=== PATIENT | female | born 1960 | race Caucasian/White ===

== ENCOUNTER → 2023-08-29 | Emergency (ER) | payer BC ==
[~2023-08-29] MED LIST: ASPIRIN 81 MG CHEWABLE TABLET ONE; FAMOTIDINE 20 MG TAB ONE; MAGNES/ALUMIN/SIMET 30ML UCUP ONE
[2023-08-29 03:00] LABS: Protime INR 0.96
[2023-08-29 03:03] LABS: Absolute Lymphocytes (CBC) 2.4 K/uL (0.7-4.9); Lymphocytes % 51.3 % (15.3-44.8); MCV 87.6 fL (80-100); MPV 7.6 fL (7.6-11.3); Platelets 273 thou/uL (152-406)
[2023-08-29 03:18] LABS: Albumin 3.5 g/dL (3.4-5.0); Bilirubin Direct 0.1 mg/dL (0-0.2); Bilirubin Indirect, Calculated 0.3 mg/dL (0.2-0.8); Bilirubin Total 0.4 mg/dL (0.2-1.0); Magnesium 2.2 mg/dL (1.6-2.4); Potassium 4.1 mEq/L (3.5-5.1); Troponin High Sensitivity 4.8 pg/mL (<58.9)
[2023-08-29 03:26] LABS: C-Reactive Protein < 2.90 mg/L (<3.00)
[2023-08-29 03:40] LABS: Blood Morphology Comment NOT SEEN (NOT SEEN); Platelet Estimate ADEQ
--- NOTE | 2023-08-29 05:44 | EDPHYS ---
Physician Documentation [facility] Name: Laverne Wolfe Age: 62 yrs Sex: Female : 1960 Arrival Date: 08/29/2023 Time: 01:11 Bed 17 Private MD: ED Physician Juan Peralta HPI: 08/29 01:30 This 62 yrs old Female presents to ER via Unassigned with complaints of Chest sp4 Pain. 01:55 Patient presents with complaint of chest pressure and indigestion worsening today but sp4 present for the past several days. Patient denied exertional chest pain, denied shortness of breath denied sweating. Patient has history of hypertension she takes losartan 50 mg tablet daily. Patient also takes Valtrex daily for fever blister suppression. No history of present coronary artery disease. . Historical: - Allergies: 02:33 No Known Allergies; km8 - Home Meds: 02:33 losartan oral [Active]; Valtrex Oral [Active]; melatonin 10 mg Oral tablet [Active]; km8 - PMHx: 02:33 Hypertensive disorder; km8 - PSHx: 02:33 Total abdominal hysterectomy; km8 - Immunization history:: Client reports receiving the 1st dose of the Covid vaccine, Flu vaccine is up to date. - Social history:: Smoking status: Patient denies any tobacco usage or history of. Patient uses alcohol, occasionally. Patient/guardian denies using street drugs. - Family history:: not pertinent. ROS: 01:55 Constitutional: Negative for fever, chills, and weight loss, positive chest pressure sp4 and indigestion 01:55 All other systems are negative, Exam: 01:55 Constitutional: This is a well developed, well nourished patient who is awake, alert, sp4 and in no acute distress. Head/Face: Normocephalic, atraumatic. Eyes: Pupils equal round and reactive to light, extra-ocular motions intact. Lids and lashes normal. Conjunctiva and sclera are not injected. Cornea within normal limits. Periorbital areas with no swelling, redness, or edema. ENT: Nares patent. No nasal discharge, no septal abnormalities noted. Tympanic membranes are normal and external auditory canals are clear. Oropharynx with no redness, swelling, or masses, exudates, or evidence of obstruction, uvula midline. Mucous membranes moist. Neck: Trachea midline, no thyromegaly or masses palpated, and no cervical lymphadenopathy. Supple, full range of motion without nuchal rigidity, or vertebral point tenderness. Chest/axilla: Normal chest wall appearance and motion. Nontender with no deformity. No lesions are appreciated. Cardiovascular: Regular rate and rhythm with a normal S1 and S2. No gallops, murmurs, or rubs. Normal PMI, no JVD. No pulse deficits. Respiratory: Lungs have equal breath sounds bilaterally, clear to auscultation and percussion. No rales, rhonchi or wheezes noted. No increased work of breathing, no retractions or nasal flaring. Abdomen/GI: Soft, non-tender, with normal bowel sounds. No distension or tympany. No guarding or rebound. No evidence of tenderness throughout. Back: No spinal tenderness. No costovertebral tenderness. Skin: Warm, dry with normal turgor. Normal color with no rashes, no lesions, and no evidence of cellulitis. MS/ Extremity: Pulses equal, no cyanosis. Neurovascular intact. Full, normal range of motion. Neuro: Awake and alert, GCS 15, oriented to person, place, time, and situation. Cranial nerves II-XII grossly intact. Motor strength 5/5 in all extremities. Sensory grossly intact. Psych: Awake, alert, with orientation to person, place and time. Behavior, mood, and affect are within normal limits 02:03 ECG was reviewed by the Attending Physician. sp4 Vital Signs: 01:15 BP 154 / 78; Pulse 76; Resp 16; Temp 98(TE); Pulse Ox 100% on R/A; Pain 0/10; km8 02:00 BP 130 / 79; Pulse 65; Resp 16; Pulse Ox 100% on R/A; km8 02:30 BP 112 / 70; Pulse 64; Resp 16; Pulse Ox 100% ; km8 03:00 BP 112 / 74; Pulse 64; Resp 16; Pulse Ox 99% on R/A; km8 04:00 BP 119 / 68; Pulse 61; Resp 16; Pulse Ox 99% on R/A; km8 05:00 BP 125 / 70; Pulse 65; Resp 16; Pulse Ox 100% on R/A; km8 05:30 BP 127 / 71; Pulse 62; Resp 16; Pulse Ox 100% on R/A; km8 01:15 Pain Scale: Adult km8 Zack Coma Score: 01:15 Eye Response: spontaneous(4). Motor Response: obeys commands(6). Verbal Response: km8 oriented(5). Total: 15. MDM: 01:30 Patient medically screened. sp4 01:55 HEART Score: History: Slightly Suspicious (0), ECG: Normal (0), Age: > 45 and < 65 sp4 years (1), Risk Factors: 1 or 2 risk factors (1), Troponin: < or = 1 x Normal Limit (0), Total Score = 2. 02:49 Differential diagnosis: acute pericarditis, anxiety, coronary artery disease chest wall sp4 pain, congestive heart failure cholecystitis, Cholelithiasis. The patient was given aspirin in the Emergency Department. Data reviewed: vital signs, nurses notes, old medical records, lab test result(s), EKG, radiologic studies, plain films. ED course: EXAM: XR Chest, 1 View CLINICAL HISTORY: The patient is 62 years old and is Female; CHEST PAIN TECHNIQUE: Frontal view of the chest. COMPARISON: No relevant prior studies available. FINDINGS: LUNGS: Unremarkable. No consolidation. PLEURAL SPACE: Unremarkable. No pneumothorax. HEART: Unremarkable. No cardiomegaly. MEDIASTINUM: Unremarkable. Normal mediastinal contour. BONES/JOINTS: Multilevel degenerative change of the spine is present. No acute fracture. UPPER ABDOMEN: Suggestion of calcified gallstones within the right upper quadrant are noted. IMPRESSION: No acute cardiopulmonary process. . 08/29 01:30 Order name: Basic Metabolic Panel; Complete Time: 04:47 08/29 01:30 Order name: CBC with Diff; Complete Time: 04:47 08/29 01:30 Order name: LFT's; Complete Time: 04:47 08/29 01:30 Order name: Magnesium; Complete Time: 04:47 08/29 01:30 Order name: NT PRO-BNP; Complete Time: 04:47 08/29 01:30 Order name: PT-INR; Complete Time: 04:47 4 08/29 01:30 Order name: Troponin HS; Complete Time: 04:47 08/29 01:41 Order name: TSH; Complete Time: 04:47 08/29 01:41 Order name: CRP; Complete Time: 04:47 sp4 08/29 01:41 Order name: T4 Free; Complete Time: 04:47 sp4 08/29 03:09 Order name: Manual Differential; Complete Time: 04:47 EDMS 08/29 04:47 Order name: Troponin High Sensitivity; Complete Time: 05:38 sp4 08/29 01:30 Order name: XRAY Chest (1 view) sp4 08/29 01:30 Order name: EKG; Complete Time: 01:31 sp4 08/29 01:30 Order name: Cardiac monitoring; Complete Time: 02:00 sp4 08/29 01:30 Order name: EKG - Nurse/Tech; Complete Time: 02:00 sp4 08/29 01:30 Order name: IV Saline Lock; Complete Time: 02:00 sp4 08/29 01:30 Order name: Labs collected and sent; Complete Time: 02:00 sp4 08/29 01:30 Order name: O2 Per Protocol; Complete Time: 02:00 sp4 08/29 01:30 Order name: O2 Sat Monitoring; Complete Time: 02:00 sp4 EC:03 Rate is 67 beats/min. Rhythm is regular, Normal Sinus Rhythm. QRS [place] is Normal. NE sp4 interval is normal. QRS interval is normal. QT interval is normal. No Q waves. T waves are Normal. No ST changes noted. Interpreted by me. Reviewed by me. Administered Medications: 01:59 Drug: Alum-Mag Hydroxide-Simeth PO Suspension (200 mg-200 mg-20 mg/5 mL) 30 ml PO once km8 Route: PO; 03:11 Follow up: Response: No adverse reaction km8 01:59 Drug: Famotidine PO 20 mg PO once Route: PO; km8 03:11 Follow up: Response: No adverse reaction km8 02:00 Drug: Aspirin PO Chewable Tablet 324 mg PO once; 81 mg tablets x 4 Route: PO; km8 03:11 Follow up: Response: No adverse reaction km8 Disposition Summary: 08/29/23 05:43 Discharge Ordered Problem: new sp4 Symptoms: have improved sp4 Condition: Stable sp4 Diagnosis - Chest pain, unspecified sp4 - Acute non-cardiac chest pain sp4 Followup: sp4 - With: Mayo Gonzalez MD - When: 7 - 10 days - Reason: Recheck today's complaints Discharge Instructions: - Discharge Summary Sheet sp4 - Nonspecific Chest Pain, Adult, [id number] sp4 Forms: - Patient Portal Instructions sp4 Signatures: Dispatcher [employer] Juan Aguilera MD MD sp4 Clara Guadalupe RN RN km8
--- NOTE | 2023-08-29 05:44 | ER ---
Nurse's Notes [facility] Name: Laverne Wolfe Age: 62 yrs Sex: Female : 1960 Arrival Date: 08/29/2023 Time: 01:11 Bed 17 Private MD: Diagnosis: Chest pain, unspecified;Acute non-cardiac chest pain Presentation: 08/29 01:15 Chief complaint: Patient states: middle chest pressure that woke her up today about 1.5 km8 hours ago; pt reports having heart burn for a few weeks, but this feels different. Coronavirus screen: Client denies travel out of the [place] in the last 14 days. Ebola Screen: No symptoms or risks identified at this time. Initial Sepsis Screen: Does the patient meet any 2 criteria? No. Patient's initial sepsis screen is negative. Does the patient have a suspected source of infection? No. Patient's initial sepsis screen is negative. Risk Assessment: Do you want to hurt yourself or someone else? Patient reports no desire to harm self or others. Onset of symptoms was August 29, 2023 at 00:15. 01:15 Method Of Arrival: Ambulatory km8 01:15 Acuity: IAIN 2 km8 Triage Assessment: 01:15 General: Appears in no apparent distress. comfortable, Behavior is calm, cooperative, km8 appropriate for age. Pain: Denies pain. EENT: No signs and/or symptoms were reported regarding the EENT system. Neuro: Level of Consciousness is awake, alert, obeys commands, Oriented to person, place, time, situation. Cardiovascular: Reports chest pain, Denies diaphoresis, nausea, shortness of breath, Capillary refill < 3 seconds Patient's skin is warm and dry. Rhythm is sinus rhythm Chest pain is described as mild, quality is pressure, is located in anterior chest wall began 1 hour prior to arrival. Respiratory: Airway is patent Respiratory effort is even, unlabored, Respiratory pattern is regular, symmetrical. GI: No signs and/or symptoms were reported involving the gastrointestinal system. : No signs and/or symptoms were reported regarding the genitourinary system. Derm: No signs and/or symptoms reported regarding the dermatologic system. Skin is intact, is healthy with good turgor, Skin is dry, Skin is pink, warm \T\ dry. normal, Skin temperature is warm. Musculoskeletal: No signs and/or symptoms reported regarding the musculoskeletal system. Circulation, motion, and sensation intact. Range of motion: intact in all extremities. Historical: - Allergies: 02:33 No Known Allergies; 8 - Home Meds: 02:33 losartan oral [Active]; Valtrex Oral [Active]; melatonin 10 mg Oral tablet [Active]; 8 - PMHx: 02:33 Hypertensive disorder; 8 - PSHx: 02:33 Total abdominal hysterectomy; km8 - Immunization history:: Client reports receiving the 1st dose of the Covid vaccine, Flu vaccine is up to date. - Social history:: Smoking status: Patient denies any tobacco usage or history of. Patient uses alcohol, occasionally. Patient/guardian denies using street drugs. - Family history:: not pertinent. Screenin:15 [facility] ED Fall Risk Assessment (Adult) History of falling in the last 3 months, 8 including since admission No falls in past 3 months (0 pts) Confusion or Disorientation No (0 pts) Intoxicated or Sedated No (0 pts) Impaired Gait No (0 pts) Mobility Assist Device Used No (0 pt) Altered Elimination No (0 pt) Score/Fall Risk Level 0 - 2 = Low Risk Oriented to surroundings, Maintained a safe environment, Educated pt \T\ family on fall prevention, incl call for assistance when getting out of bed, Assessed \T\ reinforced patient's understanding of fall precautions. Abuse screen: Denies threats or abuse. Denies injuries from another. Nutritional screening: No deficits noted. Tuberculosis screening: No symptoms or risk factors identified. Assessment: 01:15 General: see triage assessment/notes. [facility] 02:15 Reassessment: Patient appears in no apparent distress at this time. No changes from [facility] previously documented assessment. Patient and/or family updated on plan of care and expected duration. Pain level reassessed. Patient is alert, oriented x 3, equal unlabored respirations, skin warm/dry/pink. 03:11 Reassessment: Patient appears in no apparent distress at this time. No changes from [facility] previously documented assessment. Patient and/or family updated on plan of care and expected duration. Pain level reassessed. Patient is alert, oriented x 3, equal unlabored respirations, skin warm/dry/pink. 04:15 Reassessment: Patient appears in no apparent distress at this time. No changes from km8 previously documented assessment. Patient and/or family updated on plan of care and expected duration. Pain level reassessed. Patient is alert, oriented x 3, equal unlabored respirations, skin warm/dry/pink. 05:16 Reassessment: Patient appears in no apparent distress at this time. No changes from km8 previously documented assessment. Patient and/or family updated on plan of care and expected duration. Pain level reassessed. Patient is alert, oriented x 3, equal unlabored respirations, skin warm/dry/pink. Vital Signs: 01:15 BP 154 / 78; Pulse 76; Resp 16; Temp 98(TE); Pulse Ox 100% on R/A; Pain 0/10; km8 02:00 BP 130 / 79; Pulse 65; Resp 16; Pulse Ox 100% on R/A; km8 02:30 BP 112 / 70; Pulse 64; Resp 16; Pulse Ox 100% ; km8 03:00 BP 112 / 74; Pulse 64; Resp 16; Pulse Ox 99% on R/A; km8 04:00 BP 119 / 68; Pulse 61; Resp 16; Pulse Ox 99% on R/A; km8 05:00 BP 125 / 70; Pulse 65; Resp 16; Pulse Ox 100% on R/A; km8 05:30 BP 127 / 71; Pulse 62; Resp 16; Pulse Ox 100% on R/A; km8 01:15 Pain Scale: Adult km8 Zack Coma Score: 01:15 Eye Response: spontaneous(4). Motor Response: obeys commands(6). Verbal Response: km8 oriented(5). Total: 15. ED Course: 01:12 Patient arrived in ED. [email or web address] 01:15 No provider procedures requiring assistance completed. Patient maintains SpO2 km8 saturation greater than 95% on room air. 01:15 Arm band placed on right wrist. km8 01:15 Patient has correct armband on for positive identification. Placed in gown. Bed in low km8 position. Call light in reach. Side rails up X2. Client placed on continuous cardiac and pulse oximetry monitoring. NIBP monitoring applied. Warm blanket given. 01:30 Juan Peralta MD is Attending Physician. sp4 01:50 XRAY Chest (1 view) In Process Unspecified. EDMS 01:53 Collins, Clara, RN is Primary Nurse. km8 02:00 Inserted saline lock: 20 gauge in left antecubital area, using aseptic technique. Blood km8 collected. 02:33 Triage completed. km8 05:42 Mayo Gonzalez MD is Referral Physician. sp4 05:50 IV discontinued, intact, bleeding controlled, No redness/swelling at site. Pressure km8 dressing applied. 05:50 Provided Education on: d/c teaching. km8 Administered Medications: 01:59 Drug: Alum-Mag Hydroxide-Simeth PO Suspension (200 mg-200 mg-20 mg/5 mL) 30 ml PO once km8 Route: PO; 03:11 Follow up: Response: No adverse reaction km8 01:59 Drug: Famotidine PO 20 mg PO once Route: PO; km8 03:11 Follow up: Response: No adverse reaction km8 02:00 Drug: Aspirin PO Chewable Tablet 324 mg PO once; 81 mg tablets x 4 Route: PO; km8 03:11 Follow up: Response: No adverse reaction km8 Medication: 01:15 VIS not applicable for this client. km8 Outcome: 05:43 Discharge ordered by . sp4 05:51 Discharged to home ambulatory, with significant other, km8 05:51 Condition: good 05:51 Discharge instructions given to patient, significant other, Instructed on discharge instructions, follow up and referral plans. Demonstrated understanding of instructions, follow-up care, 05:51 Patient left the ED. km8 Signatures: Dispatcher [employer] EDMD Radha Lawrence [email or web address] Juan Peralta MD MD sp4 Clara Guadalupe, RN RN km8 Corrections: (The following items were deleted from the chart) 03:11 02:36 General: see triage assessment/notes. km8 km8
--- NOTE | 2023-08-29 12:54 | EKG ---
Test Date: 2023-08-29 Test Time: 01:42:32 Online Content Developer: JOSE MEASUREMENT RESULTS: Intervals: Rate: 67 IN: 178 QRSD: 94 QT: 414 QTc: 437 [place]: P: 48 IN: 178 QRS: 47 T: 51 INTERPRETIVE STATEMENTS: Normal sinus rhythm Normal ECG Compared to ECG 04/27/2009 11:11:04 No significant changes Electronically Signed On 08-29-23 12:52:25 PAEDIATRIC PHYSIOTHERAPIST by Mayo Gonzalez
--- NOTE | 2023-08-29 15:06 | RAD REPORT ---
EXAM DESCRIPTION: RAD - Chest Single View - 08/29/2023 1:49 am CLINICAL HISTORY: The patient is 62 years old and is Female; CHEST PAIN TECHNIQUE: Frontal view of the chest. COMPARISON: No relevant prior studies available. FINDINGS: LUNGS: Unremarkable. No consolidation. PLEURAL SPACE: Unremarkable. No pneumothorax. HEART: Unremarkable. No cardiomegaly. MEDIASTINUM: Unremarkable. Normal mediastinal contour. BONES/JOINTS: Multilevel degenerative change of the spine is present. No acute fracture. UPPER ABDOMEN: Suggestion of calcified gallstones within the right upper quadrant are noted. IMPRESSION: No acute cardiopulmonary process. Electronically signed by: Tiffanie Gregorio MD 08/29/2023 02:18 AM [facility] Due to temporary technical issues with the PACS/Fluency reporting system, reports are being signed by the in house radiologists without review as a courtesy to insure prompt reporting. The interpreting radiologist is fully responsible for the content of the report.
[2023-08-30 09:19] VITALS: BP 127/71; TEMP 98; O2SAT 100
== END ==
LOC: ER 01:11
DX: R07.89 Other chest pain (principal); I10 Essential (primary) hypertension
CPT/HCPCS: 36415; 71045; 80048; 80076; 83735; 83880; 84439; 84443; 84484; 85025; 85610; 86140; 93005